=== PATIENT | female | born 1965 | race Caucasian/White ===

== ENCOUNTER 2022-09-17 09:36 | Outpatient (RCR) | payer BC, SELFPAY ==
[2022-09-17 17:54] LABS: Free T4 Free Thyroxine 1.52 ng/mL (0.78-2.19)
== END 2022-12-16 23:59 | disposition home or self-care (01) ==
LOC: ANHWCLAB 09:36
PROVIDERS: Visit Provider Internal Medicine Endocrinology, Diabetes & Metabolism
DX: E03.9 Hypothyroidism, unspecified (principal)
CPT/HCPCS: 36415; 84439; 84443